=== PATIENT | male | born 1970 | race Caucasian/White ===

== ENCOUNTER → 2019-10-07 | Day surgery (SDC) | payer BC ==
--- NOTE | 2019-10-03 17:05 | Diagnostic Imaging Report ---
Abdomen, one view on 2 radiographs Clinical indications: Renal calculus, preoperative evaluation Comparison: CT the abdomen and pelvis performed 09/08/2019 Impression: There is a 7 mm calculus overlying the lower pole of the left kidney and a 4 mm calculus overlying the mid pole of the right kidney. No acute osseous abnormalities. Normal bowel gas pattern. Signed by: Maxx Barahona MD on 10/03/2019 5:02 PM
[~2019-10-07] MED LIST: ACETAMINOPHEN 1000 MG/100 ML IV ONE; ATROPINE SULFATE 1 MG/ML VIAL ONE; B&O 60MG R/S 60 MG SUPP PR ONE; CEFTRIAXONE SOD 1 GM/NS 50 ML 50 ML IV ONE; DEXAMETHASONE SOD PHOS INJ 4 MG/ML VIAL ONE; FENTANYL CITRATE/PF 100MCG/2 ML INJ ONE; IOPAMIDOL 300MG/ML 50ML INFUS..BTL IV ONE; LEVOTHYROXINE50 MCG PO; LIDOCAINE HCL 2% LOCAL INJ 5 ML SDV VIAL INJ ONE; LISINOPRIL10 MG PO; MIDAZOLAM HCL 2 MG/2 ML VIAL ONE; NEOSTIGMINE 1 MG/ML 10ML VIAL ONE; ONDANSETRON HCL INJ 2MG/ML 2ML 2 MG/ML VIAL ONE; PAXIL CR25 MG PO; PROPOFOL IV EMULSION 10 MG/ML 20 ML VIAL ONE; ROCURONIUM BROMIDE 10 MG/ML 5ML VIAL ONE; SEVOFLURANE INHAL SOLN 250 ML PEN BTL ONE; SUCCINYLCHOLINE CHLORIDE 20 MG/ML 10ML VIAL ONE
--- OUTSIDE RECORDS SUMMARY | 2019-10-07 06:34 | XMS REPORT ---
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 Allergies, Adverse Reactions, Alerts This patient has no known allergies or adverse reactions. Medications This patient has no known medications. Results Test Description Test Time Test Comments Text Results Atomic Results Result Comments ABDOMEN-1VIEW (KUB) 2019-10-03 17:01:00 [place] [address] Patient Name: ROBERT CONWAY MR #: [id number] : 1970 Age/Sex: 49/M Req #: [id number] Adm Physician: Ordered by: KENDRA ORTIZ MD Report #: [id number] Location: OR Room/Bed: Procedure: [id number] DX/ABDOMEN-1VIEW (KUB) Exam Date: Exam Time: REPORT STATUS: Signed Abdomen, one view on 2 radiographs Clinical indications: Renal calculus, preoperative evaluation Comparison: CT the abdomen and pelvis performed 09/08/2019 Impression: There is a 7 mm calculus overlying the lower pole of the left kidney and a 4 mm calculus overlying the mid pole of the right kidney. No acute osseous abnormalities. Normal bowel gas pattern. Signed by: Maxx Garrido MD on 10/03/2019 5:02 PM Dictated By: MAXX GARRIDO MD 01 Transcribed By: RODNEY on 10/03/191701 COPY TO: KENDRA ORTIZ MD CT ABDOMEN/PELVIS WO 2019-09-08 11:24:00 [place] [id number] Patient Name: ROBERT CONWAY MR #: [id number] : 1970 Age/Sex: 49/M Req #: [id number] Adm Physician: Ordered by: SYK GONG MD Report #: [id number] Location: CT Room/Bed: Procedure: [id number] CT/CT ABDOMEN/PELVIS WO Exam Date: 09/08/19 Exam Time: 0750 REPORT STATUS: Signed EXAM: CT Abdomen and Pelvis WITHOUT intravenous contras t INDICATION: Renal calculus COMPARISON: CT abdomen and pelvis of 05/26/2019 TECHNIQUE: Abdomen and pelvis were scanned utilizing a multidetector helical scanner from the lung base to the pubic symphysis without administration of IV contrast. Coronal and sagittal reformations were obtained. IV CONTRAST: None ORAL CONTRAST: Water COMPLICATIONS: None RADIATION DOSE: Total DLP: 848.9 mGy*cm Dose modulation, iterative reconstruction, and/or weight based adjustment of the mA/kV was utilized to reduce the radiation dose to as low as reasonably achievable. FINDINGS: LOWER THORAX: Normal. HEPATOBILIARY: No focal hepatic lesions. No biliary ductal dilatation. The gallbladder appears unremarkable. SPLEEN: No splenomegaly. PANCREAS: No focal masses or ductal dilatation. ADRENALS: No adrenal nodules. KIDNEYS/URETERS: 6 mm right distal ureteral calculus with minimal associated right hydroureter. No hydronephrosis. 5 mm right lower pole renal calculus. 7 mm left lower pole nonobstructive renal calculus without associated left hydronephrosis or hydroureter. PELVIC ORGANS/BLADDER: Unremarkable. PERITONEUM / RETROPERITONEUM: No free air or fluid. LYMPH NODES: No lymphadenopathy. VESSELS: Unremarkable. GI TRACT: Mild diverticulosis. No CT evidence of diverticulitis. No abnormal bowel thickening. No bowel obstruction. Normal appendix. BONES AND SOFT TISSUES: No acute fracture or dislocation. No suspicious lytic or blastic lesions. IMPRESSION: 6 mm right distal ureteral calculus with associated right hydroureter. 5 mm right lower pole renal calculus. No right hydronephrosis. 7 mm left lower pole nonobstructive renal calculus without associated hydronephrosis. Signed by: Janelle Keller MD on 09/08/2019 11:30 AM Dictated By: JANELLE KELLER MD 113 Transcribed By: RODNEY on 09/08/19 1130 COPY TO: SKY GONG MD CHEST SINGLE (PORTABLE) 2019-05-26 08:24:00 [place] [address] Patient Name: ROBERT CONWAY MR #: [id number] : 1970 Age/Sex: 49/M Req #: [id number] Adm Physician: Ordered by: JULY MONTERO MD Report #: [id number] Location: ER Room/Bed: Procedure: [id number] DX/CHEST SINGLE (PORTABLE) Exam Date: Exam Time: REPORT STATUS: Signed Chest, 1 view, 05/26/2019. History: Right-sided c hest pain. Comparison: None available. Findings: The cardiomediastinal silhouette and pulmonary vasculature are within normal limits for a portable exam. There is no focal consolidation or pleural effusion. There are no acute osseous or soft tissue abnormalities. Impression: No acute cardiopulmonary abnormality. Signed by: Daniel Porter on 05/26/2019 8:24 AM Dictated By: DANIEL PORTER MD 3 Transcribed By: RODNEY on 05/26/19823 COPY TO: JULY MONTERO MD CT ABDOMEN/PELVIS WO 2019-05-26 08:24:00 [place] [address] Patient Name: ROBERT CONWAY MR #: [id number] : 1970 Age/Sex: 49/M Req #: [id number] Adm Physician: Ordered by: JULY MONTERO MD Report #: [id number] Location: ER Room/Bed: Procedure: [id number] CT/CT ABDOMEN/PELVIS WO Exam Date: 05/26/19 Exam Time: 0740 REPORT STATUS: Signed CT of the abdomen and pelvis, without contrast, . History: Right flank pain. Comparison: None available. Technique: Multidetector CT scanning of the abdomen and pelvis was performed from the level of the lung bases to the inferior pubic rami without intravenous or oral contrast. Coronal and sagittal multiplanar reformations were obtained. RADIATION DOSE: Total DLP: 865 mGy*cm Dose modulation, iterative reconstruction, and/or weight based adjustment of the mA/kV was utilized to reduce the radiation dose to as low as reasonably achievable. Discussion: Examination is limited without contrast. Lung bases: No visualized abnormalities. Abdomen: There is mild right hydronephrosis and dilatation of the proximal right ureter to the level of L3- L4 where a 5 mm stone is identified. An additional 3 mm stone is present in the lower pole of the right kidney. A 6 mm stone is present in the lower pole of the left kidney without evidence of hydronephrosis. The liver, gal lbladder, biliary tree, spleen, pancreas, and adrenal glands are unremarkable. The abdominal aorta is within normal limits. There is no bowel dilatation. The appendix is visualized and is normal. Scattered diverticuli are present within the colon without evidence of adjacent inflammation. There is no evidence of adenopathy or free fluid. Pelvis: The bladder, prostate, and seminal vesicles are unremarkable. A small fat-containing right inguinal hernia is present. There is no evidence of free fluid or adenopathy. Bones and soft tissues: Mild degenerative changes are present within the lumbar spine without evidence of lytic or sclerotic lesion. IMPRESSION: 1. 5 mm proximal right ureteral stone causing mild right hydronephrosis. 2. Small nonobstructing left renal calculus. 3. Colonic diverticulosis without evidence of diverticulitis. Otherwise unremarkable noncontrast exam. Signed by: Daniel Porter on 05/26/2019 8:29 AM Dictated By: DANIEL PORTER MD 8 Transcribed By: RODNEY on 05/26/19828 COPY TO: JULY MONTERO MD
[2019-10-07 09:20] VITALS: BP 111/73
--- NOTE | 2019-11-05 01:16 | Operative Report ---
DATE OF PROCEDURE: 10/07/2019 SURGEON: Jameson Tilley MD PREOPERATIVE DIAGNOSES: 1. Left nephrolithiasis. 2. Right ureterolithiasis. 3. Microhematuria. POSTOPERATIVE DIAGNOSES: 1. Left nephrolithiasis. 2. Right ureterolithiasis. 3. Microhematuria. OPERATIONS PERFORMED: 1. Left-sided extracorporeal shockwave lithotripsy (separate staged procedure performed for the left nephrolithiasis). 2. Cystourethroscopy with bilateral ureteral dilatation and retrograde ureteropyelography (separate procedure performed for microhematuria). 3. Interpretation of retrograde ureteropyelography. 4. Supervision of fluoroscopy, no radiologist present. 5. Right ureteroscopy with holmium laser lithotripsy, stone extraction, and placement of stent (separate procedure performed for the right ureterolithiasis). 6. Urological services with supervision and interpretation of ureteroscopy. ANESTHESIA: General. COMPLICATIONS: None. CLINICAL SUMMARY: Parvez is a 49-year-old man with the above preoperative diagnoses. He is brought for the above procedures. He is aware of the risks of bleeding, infection, injury to adjacent structures, need for additional procedures and elected to proceed. He also understands he may have a temporary indwelling ureteral stent requires followup and removal with potential dire consequences of noncompliance. He understood these risks and elected to proceed. OPERATIVE PROCEDURE IN DETAIL: Informed consent was verified. Bryan Hannon was properly identified, taken to the operating room, placed on the lithotripsy table in supine position. Anesthesia was uneventfully begun. The patient's 7 mm left lower calyceal nephrolithiasis was localized with biplanar fluoroscopy. A total of 3000 shocks were delivered with excellent fragmentation. The patient was then carefully and gently repositioned in the dorsal lithotomy position with all pressure points well padded. His genitalia were prepared and draped in the usual sterile fashion. The cystoscope sheath with visual obturator in place was atraumatically inserted into the patient's urethra, was guided unremarkable urethra through the normal sphincteric region, through the prostate bed, which was significant for visually obstructing BPH and into the patient's bladder. Panendoscopy revealed mild trabeculations, but no tumors, no stones, and no diverticula. Normally positioned and configured ureteral orifices were identified. A ureteral catheter was used to cannulate each ureter and retrograde ureteral pyelograms were performed. A guide was then placed into the right ureter and guided to the level of the patient's kidney. Semi-rigid ureteroscope was then placed alongside the guidewire and guided to the level of the patient's stone. Holmium laser lithotripsy was then performed fragmenting the stone to multiple smaller fragments. The basket was then utilized in an atraumatic fashion to extract the large distal stone fragments, only fine sand remained. With cystoscopic fluoroscopic guidance, a right-sided indwelling ureteral stent was then placed. It was coiled in the patient's kidney as well as the patient's bladder. The retaining suture was cut short. Interpretation of retrograde ureteropyelography contrast was instilled in retrograde fashion bilaterally. The left side exhibited normal ureter, no hydronephrosis, some filling defects in the lower pole corresponding to the region where we performed lithotripsy, consistent with stone fragments as well as blood clots. The right side exhibited hydroureteronephrosis to the level of the stone. The stent was in good position, coiled in the patient's kidneys as well as the patient's bladder at the end of the case. The patient's bladder was drained. Cystoscope was withdrawn. Belladonna and opium suppository was placed revealing a 35 g prostate that is smooth, nonfluctuant, without any nodules. The patient was then uneventfully reversed from anesthesia and taken to recovery in stable condition. There were no complications to the procedure. He has tolerated the procedure well. Explicit postop instructions were given. We will plan on returning the patient to the operating room in several weeks to remove his stent to evaluate for any residual stones and manage them as needed. Jameson Tilley MD OH/MODL /[id number] cc: Johnson Scott MD
== END | disposition home or self-care (01) ==
LOC: OR 05:35
PROVIDERS: ATTEND Urology
DX: N20.0 Calculus of kidney (principal); N20.1 Calculus of ureter; N13.30 Unspecified hydronephrosis; N40.1 Benign prostatic hyperplasia with lower urinary tract symptoms; N13.8 Other obstructive and reflux uropathy; R39.14 Feeling of incomplete bladder emptying; R39.12 Poor urinary stream; N32.89 Other specified disorders of bladder; R80.9 Proteinuria, unspecified; E66.9 Obesity, unspecified; G47.33 Obstructive sleep apnea (adult) (pediatric); J45.909 Unspecified asthma, uncomplicated; I10 Essential (primary) hypertension; E03.9 Hypothyroidism, unspecified; F41.9 Anxiety disorder, unspecified; Z01.810 Encounter for preprocedural cardiovascular examination; Z01.818 Encounter for other preprocedural examination; Z68.35 Body mass index [BMI] 35.0-35.9, adult; Z87.891 Personal history of nicotine dependence
CPT/HCPCS: 50590; 52356; 74018; 88300; 93005; C1758; C1769; C2617; J0131; J0330; J0461; J0696; J1100; J2001; J2250; J2405; J2704; J2710; J3010; Q9967

== ENCOUNTER → 2019-11-07 | Day surgery (SDC) | payer BC ==
--- NOTE | 2019-11-06 09:02 | Diagnostic Imaging Report ---
Abdomen, 1 view. History: Preop, urologic surgery. Findings: Air is scattered throughout nondilated small and large bowel. Right IJ internal ureteral stent is present. 4 mm calcifications are projected over the lower poles of both kidneys. The osseous structures are intact. IMPRESSION: Small bilateral renal calculi. Signed by: Daniel Porter on 11/06/2019 8:59 AM
[~2019-11-07] MED LIST changes: -ACETAMINOPHEN 1000 MG/100 ML IV ONE; -ATROPINE SULFATE 1 MG/ML VIAL ONE; -B&O 60MG R/S 60 MG SUPP PR ONE; -IOPAMIDOL 300MG/ML 50ML INFUS..BTL IV ONE; -NEOSTIGMINE 1 MG/ML 10ML VIAL ONE; -ROCURONIUM BROMIDE 10 MG/ML 5ML VIAL ONE; -SUCCINYLCHOLINE CHLORIDE 20 MG/ML 10ML VIAL ONE
[2019-11-07 11:10] VITALS: BP 129/81
--- NOTE | 2019-11-09 16:45 | Operative Report ---
DATE OF PROCEDURE: 11/07/2019 SURGEON: Jameson Tilley MD PREOPERATIVE DIAGNOSIS: Right nephrolithiasis. POSTOPERATIVE DIAGNOSIS: Right nephrolithiasis. OPERATIONS PERFORMED: 1. Staged right-sided extracorporeal shockwave lithotripsy. 2. Supervision of fluoroscopy, no radiologist present. ANESTHESIA: General. COMPLICATIONS: None. CLINICAL SUMMARY: Bryan Hannon is a 49-year-old man with bilateral nephrolithiasis. He has a right-sided ureteral stent. He has had a right ureteroscopy with stone fragmentation and extraction performed, at that prior performance we lithotripsied the lower pole stone at the left hand side. The patient has residual stone fragments in both lower poles. He was brought for lithotripsy and indicated procedures. He is aware of the risks of bleeding, infection, injury to adjacent structures, need for additional procedures, and elected to proceed. This procedure is not elective as waiting 2 months for the COVID-19 emergency to resolve will pose this kidney at risk for stone growth, infection, and damage. OPERATIVE PROCEDURE IN DETAIL: Informed consent was verified. Bryan Hannon was properly identified, taken to the operating room, and placed on the lithotripsy table in supine position. Anesthesia was uneventfully begun. The patient's right lower pole nephrolithiasis was localized with biplanar fluoroscopy. A total of 3000 shocks were delivered with excellent fragmentation. The patient was then uneventfully reversed from anesthesia and taken to recovery room in stable condition. There were no complications to the procedure. He tolerated the procedure well. PLANS: Plans will be to return the patient to the operating room in several weeks to perform a left ESWL for the residual lower pole stone in the left hand side. At that same time, we will plan to do cystoscopy, removal of right stent with right ureteroscopy, hopefully that procedure will render the patient stent free and stone free. Following that, ongoing urological followup is must for metabolic stone workup and stone prevention regimen. Jameson Tilley MD OH/MODL /[id number] cc: Johnson Scott MD [facility]
== END | disposition home or self-care (01) ==
LOC: OR 07:01
PROVIDERS: ATTEND Urology
DX: N20.0 Calculus of kidney (principal); Z96.0 Presence of urogenital implants; G47.33 Obstructive sleep apnea (adult) (pediatric); I10 Essential (primary) hypertension; Z01.818 Encounter for other preprocedural examination; Z86.718 Personal history of other venous thrombosis and embolism
CPT/HCPCS: 50590; 74018; J0696; J1100; J2001; J2250; J2405; J2704; J3010

== ENCOUNTER → 2020-02-12 | Day surgery (SDC) | payer BC, OTHER ==
--- NOTE | 2020-02-09 13:10 | Diagnostic Imaging Report ---
Exam: KUB - 2 views Indication: Preoperative Comparison: KUB 11/06/2019 Findings: Right internal nephroureteral stent in place. Previously visualized bilateral renal calculi are not seen on today's radiographs. Nonobstructive bowel gas pattern. No free air. No acute osseous injury. Impression: Right internal nephroureteral stent in place. Previously seen bilateral renal calculi are not visualized on today's radiographs. Signed by: Alex Figueroa MD on 02/09/2020 1:07 PM
[2020-02-09 13:16] LABS: BASOPHILS # (AUTO) 0.1 (0.0-0.1); BASOPHILS % 1.2 % (0.0-1.0); EOSINOPHILS # (AUTO) 0.2 (0.0-0.4); EOSINOPHILS % 3.3 % (0.0-6.0); HEMATOCRIT 43.2 % (38.2-49.6); HEMOGLOBIN 14.5 g/dL (14.0-18.0); LYMPHOCYTES # (AUTO) 2.3 (1.0-3.2); LYMPHOCYTES % 35.1 % (18.0-39.1); MEAN CORPUSCULAR HGB CONC 33.6 g/dL (31-35); MEAN CORPUSCULAR VOLUME 92.5 fL (81-99); MONOCYTES # (AUTO) 0.7 (0.2-0.8); MONOCYTES % 10.7 % (4.4-11.3); NEUTROPHILS # (AUTO) 3.2 (2.1-6.9); NEUTROPHILS % 49.4 % (38.7-80.0); PLATELET COUNT 206 x10e3/uL (140-360); RED BLOOD COUNT 4.67 x10e6/uL (4.3-5.7)
[2020-02-09 13:17] LABS: ANION GAP 12.8 mmol/L (8-16); BLOOD UREA NITROGEN 12 mg/dL (7-26); BUN/CREATININE RATIO 11 (6-25); CALCIUM 9.4 mg/dL (8.4-10.2); CARBON DIOXIDE 26 mmol/L (22-29); CHLORIDE 104 mmol/L (98-107); CREATININE, SERUM 1.09 mg/dL (0.72-1.25); EST GLOMERULAR FILTRATION RATE > 60 ML/MIN (60-); GLUCOSE 84 mg/dL (74-118); POTASSIUM 3.8 mmol/L (3.5-5.1); SODIUM 139 mmol/L (136-145)
[~2020-02-12] MED LIST changes: +ACETAMINOPHEN 1000 MG/100 ML IV ONE; +B&O 60MG R/S 60 MG SUPP PR ONE; -DEXAMETHASONE SOD PHOS INJ 4 MG/ML VIAL ONE; +IOPAMIDOL 300MG/ML 50ML INFUS..BTL IV ONE
[2020-02-12 09:02] VITALS: BP 123/79
--- NOTE | 2020-02-14 12:10 | NUR ---
Received a call from the lab that the patient tested positive for coronavirus. I called the patient to inform him of the results. He has had ABSOLUTELY NO COVID-19 symptoms. No one in the household is ill. No contacts are ill. I instructed him to isolate himself from the family and restrict himself to a bedroom and a bathroom that no one else uses. Instructed to have the rest of the 4 members of the family test for coronavirus and to retest himself in a week as long as he remains asymptomatic. The OR has been notified of this result.
--- NOTE | 2020-03-15 02:16 | Operative Report ---
DATE OF PROCEDURE: 02/12/2020 SURGEON: Jameson Tilley MD PREOPERATIVE DIAGNOSES: 1. Urolithiasis. 2. Microhematuria. 3. Indwelling ureteral stents. POSTOPERATIVE DIAGNOSES: 1. Left nephrolithiasis. 2. Right ureterolithiasis. 3. Microhematuria. 4. Right indwelling ureteral stent. OPERATIONS PERFORMED: Note these were all staged procedures as part of multistaged, multistep process in managing patient's urolithiasis. 1. Left-sided extracorporeal shockwave lithotripsy (separate procedure performed for the left nephrolithiasis). 2. Cystourethroscopy with left ureteral catheterization and retrograde ureteropyelography (separate procedure performed for the microhematuria). 3. Cystourethroscopy with complicated removal of right indwelling ureteral stent (separate procedure performed for the right ureteral stent done with separate scope). 4. Right ureteroscopy (separate procedure performed to evaluate for any residual urolithiasis on the right-hand side). 5. Radiological services for supervision and interpretation of ureteroscopy. 6. Interpretation of retrograde ureteropyelography. 7. Supervision of fluoroscopy, no radiologist present. ANESTHESIA: General. COMPLICATIONS: None. CLINICAL SUMMARY: Bryan Hannon is a 49-year-old man with urolithiasis. The patient had a right ureteral stone, status post laser and placement of stent. He has had both prior right and left ESWL and has a residual left lower pole fragment. The patient is brought to the operating room for a staged stone procedure. He is aware of the risks of bleeding, infection, injury to adjacent structures, need for additional procedures, and elected to proceed. PROCEDURE IN DETAIL: Informed consent was verified. Bryan Hannon was properly identified, taken to the operating room, placed on the lithotripsy table in supine position. Anesthesia was uneventfully begun. The patient's left lower pole nephrolithiasis could not be well delineated. Therefore, the patient was carefully gently repositioned in dorsal lithotomy position with all pressure points well padded. His genitalia were prepared and draped in usual sterile fashion. The cystoscope sheath was inserted and the patient's urethra was guided unremarkably urethra through normal sphincteric region through the prostate bed, which was significant for an elevated median bar causing visual obstruction at the bladder neck. We entered the patient's bladder. Panendoscopy revealed a stent emerging from the right ureteral orifice. The left ureteral orifice was unremarkable. A ureteral catheter was used to cannulate the left ureter and retrograde ureteral pyelograms were performed. We identified the stone in the lower pole calyx and proceeded performing lithotripsy of the stone. It had a 6 mm in size in the lower pole, which we could see clearly as a filling defect with retrograde ureteropyelography. A guidewire was then placed into the right ureter and guided to the level of the patient's kidney. The stent was then grasped completely, removed and discarded. We introduced the were semi-rigid ureteroscope alongside the guidewire into the right distal ureter. There were no stones, no suspicious lesions. The flexible ureteroscope was then placed over the guidewire and guided to the level of the patient's kidney. Careful panendoscopy was performed. It revealed Dave's plaques throughout the kidney, but no stone burden remaining. We carefully re-examined the ureter, which exhibited no stones, no strictures, no tumors, no suspicious lesions. Interpretation of retrograde ureteropyelography contrast was instilled in retrograde fashion bilaterally on the right-hand side by the ureteroscope. It is on the left-hand side via the open-ended catheter. There is a filling defect in the right lower pole consistent with the stone. We performed lithotripsy upon the right side exhibited no stones, no suspicious lesions. Unobstructed drainage was observed fluoroscopically bilaterally. The patient's bladder was drained. Cystoscope was withdrawn. Belladonna and Opium suppositories were placed, revealing a 40 g prostate that is smooth, non-fluctuant without any nodules. The patient was then uneventfully reversed from anesthesia and taken to recovery room in stable condition. There were no complications of the procedure. He tolerated the procedure well. Plans will be to follow the patient up in the office for ongoing stone followup. We also plan to follow up on the patient's obstructive BPH with studies, such as uroflowmetry and bladder ultrasonography. Jameson Tilley MD [place]/CANDE /[id number] cc: Johnson Scott MD
== END | disposition home or self-care (01) ==
LOC: OR 06:08
PROVIDERS: ATTEND Urology
DX: N20.0 Calculus of kidney (principal); N28.89 Other specified disorders of kidney and ureter; Z46.6 Encounter for fitting and adjustment of urinary device; G47.33 Obstructive sleep apnea (adult) (pediatric); I10 Essential (primary) hypertension; E03.9 Hypothyroidism, unspecified; F41.9 Anxiety disorder, unspecified; Z01.810 Encounter for preprocedural cardiovascular examination; Z01.812 Encounter for preprocedural laboratory examination; Z01.818 Encounter for other preprocedural examination; Z11.59 Encounter for screening for other viral diseases; Z86.718 Personal history of other venous thrombosis and embolism
CPT/HCPCS: 36415; 50590; 52351; 74018; 80048; 85025; 87635; 93005; C1758; C1769; J0131; J0696; J2001; J2250; J2405; J2704; J3010; Q9967; U0002